=== PATIENT | male | born 1980 | race Caucasian/White ===

== ENCOUNTER 2016-12-15 21:42 | Emergency (ER) | payer OTHER ==
--- NOTE | 2016-12-15 23:42 | RAD ---
PA AND LATERAL CHEST X-RAY 12/15/2016 HISTORY: Fever, cough, and chills for 4 days. COMPARISON: None available. FINDINGS: Cardiac silhouette and pulmonary vasculature are within normal limits. The lungs are clear. Osseou s structures are intact. IMPRESSION: No acute cardiopulmonary process. POS: [facility]
== END 2016-12-15 22:50 | disposition home or self-care (01) ==
LOC: MADERS 21:42
DX: J98.8 Other specified respiratory disorders (principal)
CPT/HCPCS: 71020